=== PATIENT | male | born 1980 | race Caucasian/White ===

== ENCOUNTER 2019-01-27 05:04 | Emergency (ER) | payer BC ==
[2019-01-27] MEDS ORDERED: Sodium Chloride 0.9% 10 ML Syringe FLUSH PRN (05:28)
[2019-01-27] MEDS ORDERED: Famotidine 20 MG/2 ML SDV IVPUSH ONE (05:28)
--- NOTE | 2019-01-27 05:28 | EDM.PDOC ---
ED HPI GENERAL MEDICAL PROBLEM - General Chief Complaint: General Stated Complaint: confusion Time Seen by Provider: 01/27/19 05:25 Source of Information: Reports: Patient, EMS, Family (, mother), Old Records ([facility] chart/EMR). Denies: EMS Notes Reviewed (Record not available at time of dictation) History Limitations: Reports: No Limitations - History of Present Illness INITIAL COMMENTS - FREE TEXT/NARRATIVE: The patient was brought to the emergency room via ambulance with log grader accompaniment for evaluation of a probable grand mal seizure, which occurred while the patient was sleeping at about 4 AM this morning. The seizure was witnessed by his with mostly tonic-clonic activity in the arms bilaterally. Seizures lasted for about 20 seconds with postictal sedation for about 20 minutes with subsequent confusion, which has improved at time of arrival to the emergency room.. He has not had a seizure in the past with no history of stool or urine incontinence. There was some mild drooling and possible foaming of the mouth with no history of aspiration, etc. No history of recent headaches, visual changes, diplopia, or other change in neurological status. The patient denies any chest pain/pressure, heart flutter, dizziness, orthostasis, orthopnea, diaphoresis, paresthesias, recent decreased exercise tolerance, or any other anginal-type symptoms. No recent history of abdominal pain, heartburn, nausea, diarrhea, melena, gross hematochezia, or any food intolerance, including fatty foods, etc.. The patient also denies any recent fever, cough, wheezing, dyspnea, etc.. History of fall or injury with the patient complaining of nonspecific 3/10 posterior neck pain secondary to his seizure with no other meningeal signs. EKG apparently conducted by paramedics, however not available at this time. Normal sinus rhythm by their history. Spot Accu-Chek on the scene of 147 mg percent. O2 applied by the paramedics in route. Onset: Today, Sudden Onset Date: 01/27/19 Onset Time: 04:00 Duration: Improving Location: Reports: Neck (As above). Denies: Head, Face, Chest, Abdomen, Back, Upper Extremity, Left, Upper Extremity, Right, Radiates to Quality: Reports: Ache Severity: Mild Improves with: Reports: None Worsens with: Reports: None Context: Reports: Other (As above). Denies: Trauma Associated Symptoms: Reports: Confusion, Seizure. Denies: Chest Pain, Cough, Diaphoresis, Fever/Chills, Headaches, Loss of Appetite, Malaise, Nausea/Vomiting , Shortness of Breath, Syncope, Weakness Treatments EMPLOYMENT MANAGER: Reports: IV/IO, Oxygen Posterior Neck Pain Score (Numeric/FACES): 3 - Related Data Allergies Allergy/AdvReac Type Severity Reaction Status Date / Time No Known Allergies Allergy Verified 01/27/19 05:14 Home Meds: Home Meds Venlafaxine [Effexor XR] 75 mg PO DAILY 01/27/19 [History] Past Medical History HEENT History: Reports: Impaired Vision, Other (See Below). Denies: Allergic Rhinitis, Cataract, Glaucoma, Hard of Hearing, Macular Degeneration, Otitis Media, Retinal Detachment Other HEENT History: No glasses currently. Previous LASIK. Cardiovascular History: Reports: Heart Murmur, High Cholesterol, Other (See Below). Denies: Afib, Aneurysm, Arrhythmia, Blood Clots/VTE/DVT, CAD, Heart Failure, Hypertension, MT, PVD, Syncope Other Cardiovascular History: Hyperlipidemia currently not under therapy. Benign heart murmur as a teenager. Previously elevated blood pressure with no known hypertension. Respiratory History: Reports: Bronchitis, Recurrent, Intubation, Previous, Other (See Below). Denies: Asthma, COPD, Intubation, Difficult, PE, Pneumonia, Recurrent, Pneumothorax, Sleep Apnea Other Respiratory History: Snoring but no history of sleep apnea with frequent bronchitis during teenage years. Gastrointestinal History: Reports: Chronic Diarrhea, Gastritis, GERD, Other ( See Below). Denies: Bowel Obstruction, Celiac Disease, Cholelithiasis, Chronic Constipation, Fecal Incontinence, GI Bleed, Hepatitis, Inflammatory Bowel Disease, Irritable Bowel Syndrome, Jaundice, Pancreatitis, PUD Other Gastrointestinal History: Esophagitis with possible esophageal ulcer Genitourinary History: Reports: None. Denies: Acute Renal Failure, BPH, Chronic Renal Insuffiency, Renal Calculus, STD, Urinary Incontinence, UTI, Recurrent Musculoskeletal History: Reports: None, Arthritis, Osteoarthritis. Denies: Amputation, Back Pain, Chronic, Fracture, Gout, Neck Pain, Chronic, RA, SLE Neurological History: Reports: None. Denies: Cerebral Aneurysms, Concussion, CVA, Headaches, Chronic, Head Trauma, Migraines, MS, Neuropathy, Peripheral, Parkinson's, Seizure, TIA, Vertigo Psychiatric History: Reports: None. Denies: Abuse, Victim of, ADD, ADHD, Addiction, Anxiety, Depression, Psych Hospitalization(s), PTSD, Suicide Attempt , Suicidal Ideation Endocrine/Metabolic History: Reports: Obesity/BMI 30+. Denies: Diabetes, Type I , Diabetes, Type II, Diabetes Mellitus, Type 3c, Hypothyroidism, IDDM Hematologic History: Reports: None. Denies: Anemia, Blood Transfusion(s), Iron Deficiency Immunologic History: Reports: None. Denies: AIDS, HIV, SLE Oncologic (Cancer) History: Reports: None. Denies: Hodgkin's Lymphoma, Leukemia , Lymphoma, Malignant Melanoma, Renal Dermatologic History: Reports: None. Denies: Eczema, Psoriasis - Infectious Disease History Infectious Disease History: Reports: Chicken Pox. Denies: C-Difficile, Measles , Meningitis, Mononucleosis, Mumps, Pertussis (Whooping Cough), Rheumatic Fever , Rubella, Scarlet Fever, Shingles, TB, VRE - Past Surgical History Head Surgeries/Procedures: Reports: None HEENT Surgical History: Reports: LASIK, Oral Surgery, Other (See Below). Denies : Adenoidectomy, Eye Surgery, Myringotomy w Tube(s), Naso-Sinus Surgery, Tonsillectomy Other HEENT Surgeries/Procedures: Grassflat teeth extraction 4 in about 2004. LASIK in about 2004. Cardiovascular Surgical History: Reports: None. Denies: Varicose Respiratory Surgical History: Reports: None. Denies: Thoracentesis GI Surgical History: Reports: Appendectomy, EGD, Other (See Below). Denies: Cholecystectomy, Colonoscopy, Hernia, Inguinal, Hernia Repair/Other Other GI Surgeries/Procedures: Appendicectomy in 1998. EGD in May 2018. Male Surgical History: Reports: Circumcision, Other (See Below). Denies: Vasectomy Other Male Surgeries/Procedures: Circumcision as an . Endocrine Surgical History: Reports: None. Denies: Thyroid Biopsy Neurological Surgical History: Reports: None. Denies: C-Spine, Discectomy, Laminectomy, Lumbar Spine, Sacral Spine, Spinal Fusion, Thoracic Spine, Vertebroplasty Musculoskeletal Surgical History: Reports: None. Denies: Arthroscopic Procedure , Carpal Tunnel, Ganglion Cyst, Joint Replacement, ORIF, Shoulder Surgery Oncologic Surgical History: Reports: None Dermatological Surgical History: Reports: None - Past Imaging History Past Imaging History: Reports: CAT Scan (CT of the abdomen and pelvis on .), Stress Testing (Negative Cardiolite stress test on 12/04/12 with ejection fraction of 63%.), Ultrasound (Gall Bladder ultrasound on 11/28/12.) Social & Family History - Family History HEENT: Reports: None. Denies: Glaucoma, Macular Degeneration, Retinal Detachment Cardiac: Reports: Arrhythmia, Blood Clots/VTE/DVT, Bypass, CAD, MT, Pacemaker, Other (See Below). Denies: Afib, Aneurysm, Heart Failure, Heart Murmur, Syncope Other Cardiac Family History: Maternal grandfather with coronary artery disease but no MT. Maternal aunt with history of MT in her 50s. Maternal uncle with history of MT and CABG 3 at age 51. Paternal aunt with history of DVT and probable fatal PE in her 50s. Paternal uncle with pacemaker an unknown type of heart surgery. Paternal grandfather with fatal MT at age 47. Father with DVT and PE at age 55. Hypertension in mother in maternal grandmother. Hyperlipidemia in mother. Respiratory: Reports: PE, Sleep Apnea, Other (See Below). Denies: Asthma, COPD , Pneumothorax Other Respiratory Family Hisory: Father with sleep apnea. PEs as above. GI: Reports: Bowel Obstruction, Colon Polyps, Other (See Below). Denies: Celiac Disease, Cholelithiasis, GERD, GI bleed, Inflammatory Bowel Disease, Irritable Bowel Syndrome, PUD Other GI Family History: Maternal uncle with colon polyps with maternal grandfather with colon cancer as below. Maternal grandfather with unknown type of abdominal issues including possible adhesions, obstruction, etc. : Reports: Renal Calculus, Other (See Below). Denies: Renal Disease/ Insufficiency Other Family History: Paternal uncle with urolithiasis. OBGYN: Reports: None. Denies: Endometriosis, Recurrent Spontaneous Musculoskeletal: Reports: Arthritis, RA, Other (See Below). Denies: Gout, SLE Other Musculoskeletal Family History: Rheumatoid arthritis in paternal aunt Neurological: Reports: MS, Other (See Below). Denies: Alzheimers Disease, Cerebral Aneurysms, CVA, Dementia, Migraines, Parkinson's, Seizure, TIA Other Neurological Family History: MS in paternal uncle. Father with fatal ALS at age 57. Psychiatric: Reports: Depression, Eating Disorders, Psych Hospitalization(s), Other (See Below). Denies: Abuse, Victim of, ADD, ADHD, Anxiety, PTSD, Suicide Attempt Other Psychiatric Family History: Maternal uncle with anxiety depression disorder which did require hospitalization. Endocrine/Metabolic: Reports: Diabetes, type II, Hypothyroidism, IDDM, Other ( See Below). Denies: Diabetes, Gestational, Diabetes, Type I, Diabetes Mellitus , Type 3c Other Endocrine/Metabolic Family History: IDDM in maternal grandmother and maternal uncle. Mother with AODM and hypothyroidism. Hematologic: Reports: None. Denies: Anemia, SLE Immunologic: Reports: None. Denies: AIDS, HIV, SLE Dermatologic: Reports: None. Denies: Eczema, Psoriasis Oncologic: Reports: Colon, Other (See Below). Denies: Hodgkin's Lymphoma, Leukemia, Lymphoma, Non-Hodgkin's Lymphoma, Prostate, Skin Other Oncologic Family History: Maternal grandfather with fatal colon cancer at age 86. - Tobacco Use Smoking Status *Q: Former Smoker Tobacco Use Within Last Twelve Months: No Years of Tobacco use: 5 Packs/Tins Daily Comment: Patient used cigarettes and chewing tobacco between ages 19 and 23. Used Tobacco, but Quit: Yes Month/Year Tobacco Last Used: 15 Smoking Cessation Information Provided To Patient: Yes Second Hand Smoke Exposure: No Second Hand Smoke Education Provided: No - Caffeine Use Caffeine Use: Reports: Coffee (Maximum 10 cups per day), Tea (2 cans per week). Denies: Energy Drinks, Soda - Alcohol Use Alcohol Use History: Yes Days Per Week of Alcohol Use: 0 Number of Drinks Per Day: 3 Number of Drinks Per Day Comment: Usually mixed drinks about twice per month. No previous DWIs, problems with alcohol abuse, etc. Total Drinks Per Week: 0 Alcohol Use in Last Twelve Months: Yes - Recreational Drug Use Recreational Drug Use: No Drug Use in Last 12 Months: No Recreational Drug Type: Denies: Amphetamines (Speed), Cocaine, Heroin, Inhalants (Glues, Solvents, Aerosols), Ketamines, Marijuana/Hashish, Methamphetamine, Oxycodone - Sexual History Sexual History: Reports: None, Single Partner - Living Situation & Occupation Living situation: Reports: (2006, however), with Family Occupation: Employed ([employer]) ED ROS GENERAL - Review of Systems Review Of Systems: ROS reveals no pertinent complaints other than HPI. ED EXAM, GENERAL - Physical Exam Exam: See Below Exam Limited By: No Limitations General Appearance: Alert, WD/WN, No Apparent Distress Eye Exam: Bilateral Eye: EOMI, Normal Fundi, Normal Inspection (No nystagmus), PERRL Nose: Normal Inspection, Normal Mucosa, No Blood Throat/Mouth: Normal Inspection, Normal Lips, Normal Teeth, Normal Gums, Normal Oropharynx, Normal Voice, No Airway Compromise, Other (No tongue injury). No: Dysphagia, Perioral Cyanosis Head: Atraumatic, Normocephalic. No: Facial Swelling, Facial Tenderness, Sinus Tenderness Neck: Normal Inspection, Supple, Non-Tender, Full Range of Motion. No: Carotid Bruit, Lymphadenopathy (L), Lymphadenopathy (R), Thyromegaly Respiratory/Chest: No Respiratory Distress, Lungs Clear, Normal Breath Sounds, No Accessory Muscle Use, Chest Non-Tender. No: Pleural Rub, Retractions Cardiovascular: Normal Peripheral Pulses, Regular Rate, Rhythm, No Edema, No Gallop, No JVD, No Murmur, No Rub. No: Gallop/S3, Gallop/S4, Friction Rub Peripheral Pulses: 2+: Radial (L), Radial (R), Dorsalis Pedis (L), Dorsalis Pedis (R) GI/Abdominal: Normal Bowel Sounds, Soft, Non-Tender, No Organomegaly, No Distention, No Abnormal Bruit, No Mass, Pelvis Stable, Other (Obese). No: Guarding (Male) Exam: Deferred Rectal (Males) Exam: Deferred Back Exam: Normal Inspection, Full Range of Motion. No: CVA Tenderness (L), CVA Tenderness (R), Muscle Spasm Extremities: Normal Inspection, Normal Range of Motion, Non-Tender, No Pedal Edema, Normal Capillary Refill. No: Yessi's Sign Neurological: Alert, Oriented, CN II-XII Intact, Normal Cognition, Normal Gait, Normal Reflexes (Negative Babinski's, finger to nose, and pronator rotation tests. No evidence of facial paresis, tongue deviation, orthostasis, etc.. Excellent reverse thought processes.), No Motor/Sensory Deficits Psychiatric: Normal Affect, Normal Mood Skin Exam: Warm, Dry, Intact, Normal Color, No Rash. No: Diaphoretic, Wound/ Incision Lymphatic: No Adenopathy EKG INTERPRETATION EKG Date: 01/27/19 Time: 05:50 Rhythm: NSR Rate (Beats/Min): 78 [employer]: Normal (Neutral) P-Wave: Present QRS: Wide (0.11 seconds) ST-T: Normal (T-wave inversion in leads 3 and V1) QT: Normal WV/PQ Interval: 0.15 seconds with no delta waves noted Comparison: No Change (Last EKG at time of Cardiolite evaluation on 12/04/12) EKG Interpretation Comments: No acute ischemic changes Course - Vital Signs Last Recorded V/S: Last Vital Signs Temp 36.6 C 01/27/19 07:34 Pulse 87 01/27/19 08:26 Resp 20 01/27/19 08:26 BP 123/79 01/27/19 08:26 Pulse Ox 100 01/27/19 08:26 Vital Signs - 24 hr 01/27/19 01/27/19 01/27/19 05:05 05:28 05:45 Temperature [ 36.5 C 36.6 C Oral] Pulse, 90 85 86 Peripheral [ Right Pulse Oximetry] Respiratory 16 16 16 Rate Blood Pressure 130/74 103/53 L 108/76 [Right Upper Arm] O2 Sat by Pulse 92 L 98 98 Oximetry 01/27/19 01/27/19 01/27/19 06:00 06:15 06:30 Temperature [ Oral] Pulse, 82 85 83 Peripheral [ Right Pulse Oximetry] Respiratory 16 16 16 Rate Blood Pressure 119/51 L 108/57 L 116/68 [Right Upper Arm] O2 Sat by Pulse 99 99 100 Oximetry 01/27/19 01/27/19 01/27/19 06:36 07:34 08:26 Temperature [ 36.6 C Oral] Pulse, 80 80 87 Peripheral [ Right Pulse Oximetry] Respiratory 16 24 H 20 Rate Blood Pressure 109/60 126/74 123/79 [Right Upper Arm] O2 Sat by Pulse 100 100 100 Oximetry - Orders/Labs/Meds Orders: Active Orders 24 hr Category Date Time Status Cardiac Monitoring [RC] STAT Care 01/27/19 05:28 Active EKG Documentation Completion [RC] ASDIRECTED Care 01/27/19 05:28 Active NIH Stroke Scale [RC] ASDIRECTED Care 01/27/19 05:28 Active Oxygen Therapy, ED [RC] PRN Care 01/27/19 05:28 Active Peripheral IV Care [RC] . DIRECTED Care 01/27/19 05:28 Active Pulse Oximetry [RC] CONTINUOUS Care 01/27/19 05:28 Active Up With Assistance [RC] ASDIRECTED Care 01/27/19 05:28 Active Vital Signs [RC] PFP Care 01/27/19 05:28 Active Nothing per Oral Now Diet [DIET] Diet 01/27/19 Breakfast Active Chest 1V Frontal [CR] Stat Exams 01/27/19 05:28 Taken Head wo Cont [CT] Stat Exams 01/27/19 05:28 Taken PROLACTIN [REF] Stat Lab 01/27/19 05:40 Received Sodium Chloride 0.9% [Saline Flush] Med 01/27/19 05:28 Active 10 ml FLUSH ASDIRECTED PRN Obtain Past Medical Record [OM.PC] Stat Oth 01/27/19 05:28 Active Peripheral IV Insertion Adult [OM.PC] Stat Oth 01/27/19 05:28 Ordered Resuscitation Status Stat Resus Stat 01/27/19 05:28 Ordered Medication Orders Sodium Chloride (Saline Flush) 10 ml FLUSH ASDIRECTED PRN PRN Reason: Keep Vein Open Last Admin: 01/27/19 05:53 Dose: 10 ml Labs: Laboratory Tests 01/27/19 01/27/19 01/27/19 Range/Units 05:40 05:40 05:40 WBC 7.2 (4.0-10.2) K/uL RBC 5.10 (4.33-5.41) M/uL Hgb 15.6 (13.1-16.8) g/dL Hct 43.6 (39.0-49.0) % MCV 85.5 (84.0-98.0) fL MCH 30.6 (28.2-33.3) pg MCHC 35.8 (31.7-36.0) g/dL RDW 13.1 (11.2-14.1) % Plt Count 199 (150-350) K/uL Neut % (Auto) 67.5 (45.0-80.0) % Lymph % (Auto) 23.9 (10.0-50.0) % Reynolds % (Auto) 6.6 (2.0-14.0) % Eos % (Auto) 1.4 (0.0-5.0) % Baso % (Auto) 0.6 (0.0-2.0) % Neut # (Auto) 4.88 (1.40-7.00) K/uL Lymph # (Auto) 1.73 (0.50-3.50) K/uL Reynolds # (Auto) 0.48 (0.00-1.00) K/uL Eos # (Auto) 0.10 (0.00-0.50) K/uL Baso # (Auto) 0.04 (0.00-0.20) K/uL PT 10.2 (9.5-12.0) SEC INR 0.9 APTT 24.3 (21.0-31.3) SEC D-Dimer, Quantitative 950 H (0-400) ng/mL Sodium (136-145) mmol/L Potassium (3.5-5.1) mmol/L Chloride (98-107) mmol/L Carbon Dioxide (21.0-32.0) mmol/L BUN (7-18) mg/dL Creatinine (0.51-1.17) mg/dL Est Cr Clr Drug Dosing mL/min Estimated GFR (MDRD) mL/min Glucose (74-106) mg/dL Lactic Acid (0.4-2.0) mmol/L Uric Acid (2.6-7.2) mg/dL Calcium (8.5-10.1) mg/dL Magnesium (1.8-2.4) mg/dL Total Bilirubin (0.2-1.0) mg/dL AST (15-37) U/L ALT (12-78) U/L Alkaline Phosphatase (46-116) IU/L Creatine Kinase (26-308) U/L Creatine Kinase Index (0.0-2.5) % CK-MB (CK-2) (0.00-3.60) ng/mL Troponin I (0.000-0.056) ng/mL NT-Pro-B Natriuret Pep (0-125) pg/mL Total Protein (6.4-8.2) g/dL Albumin (3.4-5.0) g/dL TSH, Ultra Sensitive (0.358-3.740) mIU/mL 01/27/19 01/27/19 Range/Units 05:40 05:40 WBC (4.0-10.2) K/uL RBC (4.33-5.41) M/uL Hgb (13.1-16.8) g/dL Hct (39.0-49.0) % MCV (84.0-98.0) fL MCH (28.2-33.3) pg MCHC (31.7-36.0) g/dL RDW (11.2-14.1) % Plt Count (150-350) K/uL Neut % (Auto) (45.0-80.0) % Lymph % (Auto) (10.0-50.0) % Reynolds % (Auto) (2.0-14.0) % Eos % (Auto) (0.0-5.0) % Baso % (Auto) (0.0-2.0) % Neut # (Auto) (1.40-7.00) K/uL Lymph # (Auto) (0.50-3.50) K/uL Reynolds # (Auto) (0.00-1.00) K/uL Eos # (Auto) (0.00-0.50) K/uL Baso # (Auto) (0.00-0.20) K/uL PT (9.5-12.0) SEC INR APTT (21.0-31.3) SEC D-Dimer, Quantitative (0-400) ng/mL Sodium 138 (136-145) mmol/L Potassium 3.3 L (3.5-5.1) mmol/L Chloride 100 (98-107) mmol/L Carbon Dioxide 26.6 (21.0-32.0) mmol/L BUN 18 (7-18) mg/dL Creatinine 1.14 (0.51-1.17) mg/dL Est Cr Clr Drug Dosing 97.38 mL/min Estimated GFR (MDRD) > 60 mL/min Glucose 150 H (74-106) mg/dL Lactic Acid 4.7 H (0.4-2.0) mmol/L Uric Acid 11.3 H (2.6-7.2) mg/dL Calcium 8.8 (8.5-10.1) mg/dL Magnesium 1.8 (1.8-2.4) mg/dL Total Bilirubin 0.6 (0.2-1.0) mg/dL AST 35 (15-37) U/L ALT 46 (12-78) U/L Alkaline Phosphatase 83 (46-116) IU/L Creatine Kinase 214 (26-308) U/L Creatine Kinase Index 0.8 (0.0-2.5) % CK-MB (CK-2) 1.70 (0.00-3.60) ng/mL Troponin I 0.000 (0.000-0.056) ng/mL NT-Pro-B Natriuret Pep 6 (0-125) pg/mL Total Protein 7.4 (6.4-8.2) g/dL Albumin 4.0 (3.4-5.0) g/dL TSH, Ultra Sensitive 3.351 (0.358-3.740) mIU/mL Meds: Medications Generic Name Dose Route Start Last Admin Trade Name Polly PRN Reason Stop Dose Admin Sodium Chloride 10 ml 01/27/19 05:28 01/27/19 05:53 Saline Flush FLUSH 10 ml ASDIRECTED PRN Administration Keep Vein Open Discontinued Medications Generic Name Dose Route Start Last Admin Trade Name Freq PRN Reason Stop Dose Admin Famotidine 40 mg 01/27/19 05:28 01/27/19 05:53 Pepcid IVPUSH 01/27/19 05:29 40 mg ONETIME ONE Administration Lactated Ringer's 1,000 mls @ 999 mls/hr 01/27/19 06:39 01/27/19 07:39 Ringers, Lactated IV 01/27/19 07:39 999 mls/hr .BOLUS ONE Administration Iopamidol 100 ml 01/27/19 06:45 Isovue-370 (76%) IVPUSH 01/27/19 06:46 ONETIME ONE Iopamidol Confirm 01/27/19 07:21 Isovue-370 (76%) Administered 01/27/19 07:22 Dose 50 ml .ROUTE .STK-MED ONE Iopamidol Confirm 01/27/19 07:23 Isovue-370 (76%) Administered 01/27/19 07:24 Dose 50 ml .ROUTE .STK-MED ONE Levetiracetam 500 mg 01/27/19 07:17 01/27/19 07:45 Keppra PO 01/27/19 07:18 500 mg ONETIME ONE Administration - Radiology Interpretation Free Text/Narrative:: Corporate Communications Manager shows normal sinus rhythm with heart rate in the 70s to 80s with no ectopy or arrhythmia. Chest x-ray, portable, shows evidence of borderline pulmonary obstructive disease with no pneumothorax, pulmonary infiltrates, cardiomegaly, CHF, etc. Note somewhat poor inspiratory film. Telephone consultation at 06:55 hours with the radiology department at [facility]. Preliminary verbal report of CT of the head without contrast shows evidence of left frontal cerebral edema consistent with CVA with no cerebral hemorrhage, mass, etc. CT Results Date: 01/27/19 CT Results Time: 06:55 Departure - Departure Time of Disposition: :25 Disposition: DC/Tfer to [facility] 02 Condition: Good Clinical Impression: Grand mal seizure, D-dimer, elevated, Hypokalemia, Peptic reflux disease, Cerebral edema, Elevated lactic acid level, Hyperuricemia Hyperlipidemia Qualifiers: Hyperlipidemia type: mixed hyperlipidemia Qualified Code(s): E78.2 - Mixed hyperlipidemia Osteoarthritis Qualifiers: Osteoarthritis location: multiple joints Osteoarthritis type: primary Qualified Code(s): M15.0 - Primary generalized (osteo)arthritis - Discharge Information *PRESCRIPTION DRUG MONITORING PROGRAM REVIEWED*: Not Applicable *COPY OF PRESCRIPTION DRUG MONITORING REPORT IN PATIENT NATALIIA: Not Applicable Referrals: Sheets-Jovita Oswald MD [Primary Care Provider] - Forms: ED Department Discharge, Interfacility Transfer EMTALA Care Plan Goals: Ambulance transfer as below. - Problem List & Annotations (1) Cerebral edema SNOMED Code(s): 4851927 Code(s): G93.6 - CEREBRAL EDEMA Status: Acute Priority: High Current Visit: Yes Onset Date: 01/27/19 Annotation/Comment:: Note CT scan of the head results as above. Telephone consultation with [facility] at 07:00 hours with subsequent telephone consultation at 07:[address] Gil, neurologist, who does recommend MRI of the brain and 500 mg of oral Keppra. No further aspirin or anticoagulants per his recommendations. Subsequent telephone consultation at 07:[address] Chen, emergency room physician, who does accept the patient for further treatment and evaluation , with no further treatment recommendations given. Ambulance transfer with log grader accompaniment. Vital signs and clinical exam were stable at time of transfer. (2) Grand mal seizure SNOMED Code(s): 18405574 Code(s): G40.409 - OTH GENERALIZED EPILEPSY, NOT INTRACTABLE, W/O STAT EPI Status: Acute Priority: High Current Visit: Yes Onset Date: 01/27/19 Annotation/Comment:: No neurological deficits or evidence of CVA. NIH stroke scale of 0. Note witnessed seizure as above. Neurological consultation as above. MRI of the brain LISSETH by accepting facility with further neurological consultation at that time. (3) Elevated lactic acid level SNOMED Code(s): 5718181 Code(s): R79.89 - OTHER SPECIFIED ABNORMAL FINDINGS OF BLOOD CHEMISTRY Status: Acute Priority: High Current Visit: Yes Onset Date: 01/27/19 Annotation/Comment:: Elevated lactic acid level likely secondary to his grand mal seizure. IV lactated Ringer's initiated in the emergency room as above. Consider repeat lactic acid level in 3 hours. Note no fever, leukocytosis, etc. (4) D-dimer, elevated SNOMED Code(s): 789404145 Code(s): R79.89 - OTHER SPECIFIED ABNORMAL FINDINGS OF BLOOD CHEMISTRY Status: Acute Priority: High Current Visit: Yes Onset Date: 01/27/19 Annotation/Comment:: Note CTA of the chest cannot be conducted in this facility as ordered secondary to equipment failure. Recommend CTA of the chest by accepting. Strong family history of DVT and PE, however no clinical evidence of DVT today. Consider Venous Doppler studies of the lower extremities depending on his clinical course. (5) Hyperlipidemia SNOMED Code(s): 60790778 Code(s): E78.5 - HYPERLIPIDEMIA, UNSPECIFIED Status: Chronic Priority: Medium Current Visit: Yes Annotation/Comment:: Note history of fatty liver. Weight loss in moderation advisable. Consider starting patient with a statin with additional heart healthy and uric acid diet secondary to newly diagnosed hyperuricemia with no history of previous gout, etc. Qualifiers: Hyperlipidemia type: mixed hyperlipidemia Qualified Code(s): E78.2 - Mixed hyperlipidemia (6) Hypokalemia SNOMED Code(s): 21787056 Code(s): E87.6 - HYPOKALEMIA Status: Acute Priority: Medium Current Visit: Yes Onset Date: 01/27/19 Annotation/Comment:: Lactated Ringer's IV bolus given in the emergency room. (7) Osteoarthritis SNOMED Code(s): 260119179 Code(s): M19.90 - UNSPECIFIED OSTEOARTHRITIS, UNSPECIFIED SITE Status: Chronic Priority: Medium Current Visit: Yes Annotation/Comment:: Mild neck pain currently likely secondary to today's seizure and/or cerebral edema as above. Note negative meningeal signs.. No history of recent injury. Otherwise stable arthritis. Note newly diagnosed hyperuricemia as above. Qualifiers: Osteoarthritis location: multiple joints Osteoarthritis type: primary Qualified Code(s): M15.0 - Primary generalized (osteo)arthritis (8) Peptic reflux disease SNOMED Code(s): 479320730 Code(s): K21.9 - GASTRO-ESOPHAGEAL REFLUX DISEASE WITHOUT ESOPHAGITIS Status: Chronic Priority: Medium Current Visit: Yes Annotation/Comment:: High-dose IV Pepcid given in the emergency room. Otherwise stable by history. (9) Hyperuricemia SNOMED Code(s): 08824984 Code(s): E79.0 - HYPERURICEMIA W/O SIGNS OF INFLAM ARTHRIT AND TOPHACEOUS DIS Status: Acute Priority: Medium Current Visit: Yes Onset Date: Annotation/Comment:: As above - Problem List Review Problem List Initiated/Reviewed/Updated: Yes - My Orders Last 24 Hours: My Active Orders 01/27/19 05:28 Cardiac Monitoring [RC] STAT EKG Documentation Completion [RC] ASDIRECTED NIH Stroke Scale [RC] ASDIRECTED Oxygen Therapy, ED [RC] PRN Peripheral IV Care [RC] . DIRECTED Pulse Oximetry [RC] CONTINUOUS Up With Assistance [RC] ASDIRECTED Vital Signs [RC] PFP Chest 1V Frontal [CR] Stat Head wo Cont [CT] Stat Sodium Chloride 0.9% [Saline Flush] 10 ml FLUSH ASDIRECTED PRN Obtain Past Medical Record [OM.PC] Stat Peripheral IV Insertion Adult [OM.PC] Stat Resuscitation Status Stat 01/27/19 05:40 PROLACTIN [REF] Stat 01/27/19 Breakfast Nothing per Oral Now Diet [DIET] - Assessment/Plan Last 24 Hours: My Active Orders 01/27/19 05:28 Cardiac Monitoring [RC] STAT EKG Documentation Completion [RC] ASDIRECTED NIH Stroke Scale [RC] ASDIRECTED Oxygen Therapy, ED [RC] PRN Peripheral IV Care [RC] . DIRECTED Pulse Oximetry [RC] CONTINUOUS Up With Assistance [RC] ASDIRECTED Vital Signs [RC] PFP Chest 1V Frontal [CR] Stat Head wo Cont [CT] Stat Sodium Chloride 0.9% [Saline Flush] 10 ml FLUSH ASDIRECTED PRN Obtain Past Medical Record [OM.PC] Stat Peripheral IV Insertion Adult [OM.PC] Stat Resuscitation Status Stat 01/27/19 05:40 PROLACTIN [REF] Stat 01/27/19 Breakfast Nothing per Oral Now Diet [DIET] Assessment:: As above Plan: As above. Extensive precautions were given to the patient and his family, who are in agreement with the treatment plan. Ambulance transfer with log grader accompaniment to [place] as above.
[2019-01-27 06:21] LABS: CHLORIDE,CL 100 mmol/L (98-107); SODIUM,NA 138 mmol/L (136-145)
[2019-01-27] MEDS ORDERED: Lactated Ringers 1,000 ML IV ONE (06:39)
[2019-01-27] MEDS ORDERED: Iopamidol 755 Mg/ML 100 ML Bottle IVPUSH ONE (06:45)
[2019-01-27] MEDS ORDERED: levETIRAcetam 500 MG Tab PO ONE (07:17)
[2019-01-27] MEDS ORDERED: Iopamidol 755 MG/ML 50 ML Bottle ONE ×2 (07:21→07:23)
== END 2019-01-27 08:25 ==
LOC: LL.ED 05:04
DX: G40.409 Other generalized epilepsy and epileptic syndromes, not intractable, without status epilepticus (principal); G93.6 Cerebral edema; K21.9 Gastro-esophageal reflux disease without esophagitis; E87.6 Hypokalemia; E79.0 Hyperuricemia without signs of inflammatory arthritis and tophaceous disease; E78.2 Mixed hyperlipidemia; M15.0 Primary generalized (osteo)arthritis; R79.89 Other specified abnormal findings of blood chemistry; Z79.899 Other long term (current) drug therapy; Z87.891 Personal history of nicotine dependence
CPT/HCPCS: 36000; 36415; 70450; 71045; 80053; 82550; 82553; 83605; 83735; 83880; 84146; 84443; 84484; 84550; 85025; 85379; 85610; 85730; 93005; 96360; 96374; 99285; A9270; J3490; J7120

== ENCOUNTER 2019-12-23 09:53 | Day surgery (SDC) | payer BC ==
[~2019-12-23 09:53] MED LIST: Lactated Ringers 1,000 ML IV SCH; Midazolam 1 MG/ML 2 ML SDV ONE; Propofol 200 MG/20 ML SDV ONE; Sodium Chloride 0.9% 10 ML Syringe FLUSH PRN; fentaNYL 250 MCG/5 ML SDV ONE
[2019-12-23] MEDS: Lactated Ringers 1,000 ML IV SCH (10:47)
[2019-12-23] MEDS ORDERED: Neostigmine Methylsulfate 10 MG/10 ML MDV ONE (11:10)
[2019-12-23] MEDS ORDERED: Succinylcholine 200 MG/10 ML MDV ONE (11:10)
[2019-12-23] MEDS: EPINEPHrine 1 MG/1 ML Amp ONE (11:10)
[2019-12-23] MEDS ORDERED: Midazolam 1 MG/ML 2 ML SDV ONE (11:10)
[2019-12-23] MEDS ORDERED: Dexamethasone 10 MG/ML SDV ONE (11:10)
[2019-12-23] MEDS ORDERED: Glycopyrrolate 0.2 MG/ML SDV ONE ×2 (11:10)
[2019-12-23] MEDS ORDERED: Ketorolac 30 MG/ML SDV ONE (11:10)
[2019-12-23] MEDS: Gentamicin 40 MG/ML 2 ML Vial ONE (11:10)
[2019-12-23] MEDS ORDERED: fentaNYL 250 MCG/5 ML SDV ONE (11:10)
[2019-12-23] MEDS ORDERED: Propofol 200 MG/20 ML SDV ONE (11:10)
[2019-12-23] MEDS ORDERED: Rocuronium 100 MG/10 ML MDV ONE (11:10)
[2019-12-23] MEDS ORDERED: Scopolamine 1.5 MG Transdermal Patch ONE (11:41)
[2019-12-23] MEDS: Bupivacaine 0.25%/EPINEPHrine 1:200,000 30 ML SDV INJECT ONE (11:55)
--- NOTE | 2019-12-23 12:10 | PCM.OPNOTE ---
- General Post-Op/Procedure Note Date of Surgery/Procedure: 12/23/19 Operative Procedure(s): left knee arthroscopy. partial medial menisectomy Pre Op Diagnosis: partial medial meniscus tear Post-Op Diagnosis: Same Anesthesia Technique: General ET Tube Primary Surgeon: Richie Valentine Complications: None Condition: Good
--- NOTE | 2019-12-23 14:23 | OR ---
Date of Procedure: 12/23/2019 PREOPERATIVE DIAGNOSIS: Left knee partial medial meniscus tear. POSTOPERATIVE DIAGNOSIS: Left knee partial medial meniscus tear. PROCEDURE: Left knee partial medial meniscectomy. ANESTHESIA: General endotracheal intubation. FLUIDS: Lactated Ringer's solution. ESTIMATED BLOOD LOSS: 5 mL. COMPLICATIONS: None. SPECIMENS: None. DISCHARGE DISPOSITION: Stable to PACU. HISTORY AND INDICATIONS FOR THE PROCEDURE: The patient was seen preoperatively in the clinic. He failed nonoperative treatment. Preoperative imaging confirmed the above-mentioned diagnosis. Risks and goals of the procedure were explained to the patient. Informed consent was obtained. DETAILS OF THE PROCEDURE: The patient was seen preoperatively by myself and the anesthesia staff in the preoperative holding area where the operative site was marked. He was brought to the operative suite by anesthesia staff, where general anesthesia was administered. The right extremity was placed into a stirrup. The left lower extremity had a well-padded tourniquet placed on the thigh. Towels were placed under the left thigh to flex hip at approximately 15 degrees to avoid any femoral nerve injury. The left lower extremity was then prepped and draped in a sterile manner. Time-out was called identifying the correct patient, the correct procedure, the correct site, and the antibiotics had been given at appropriate period of time. The left lower extremity was then exsanguinated and tourniquet was raised to 250 mmHg and taken down after closure. The lateral portal was first made. Trocar was inserted and then the scope, and then, the knee was insufflated with sterile saline with gentamycin and epinephrine. We then entered patellofemoral compartment with the knee in extension. This showed minimal degenerative chondromalacia, although there had been shown evidence of fissuring on the MRI, which was not seen arthroscopically. Both of the gutters were cleared. They had no plica. I then examined the lateral compartment, lateral meniscus, did not have tears. A minimal chondromalacia was present. I then made my medial portal and inserted a trocar and then inserted the shaver. I removed a part of patellar fat pad and then found that there was an anteromedial tear which was radial comprising approximately 25% of the width of the meniscus. I then used the shaver to debride this and stabilize this with an ablation unit. I inspected the posterior meniscus which did not show any sign of tear. Having accomplished our goal, we then removed our instruments and then applied local anesthetic and then closed the incisions with 3-0 nylon in horizontal mattress manner followed by Betadine-soaked Adaptic, sponges, and Kavon wrap. The patient was then allowed to awaken from general anesthesia and taken to the PACU in stable condition. ISA Valentine DO, DO /[id number]
== END 2019-12-23 13:50 | disposition home or self-care (01) ==
LOC: LL.SDS 09:53
PROVIDERS: ATTEND Orthopaedic Surgery
DX: S83.242A Other tear of medial meniscus, current injury, left knee, initial encounter (principal); M94.262 Chondromalacia, left knee; Z79.899 Other long term (current) drug therapy; X58.XXXA Exposure to other specified factors, initial encounter
CPT/HCPCS: 29881; J0171; J0330; J1100; J1580; J1885; J2250; J2704; J2710; J3010; J3490; J7120

== ENCOUNTER 2021-01-01 19:29 | Emergency (ER) | payer BC ==
--- NOTE | 2021-01-01 19:59 | EDM.PDOC ---
ED HPI GENERAL MEDICAL PROBLEM - General Chief Complaint: Upper Extremity Injury/Pain Stated Complaint: left elbow injury Time Seen by Provider: 01/01/21 19:45 Source of Information: Reports: Patient History Limitations: Reports: No Limitations - History of Present Illness INITIAL COMMENTS - FREE TEXT/NARRATIVE: Patient comes emergency department today with complaints of left elbow pain. This patient on Saturday afternoon was walking in the water on the [place] in [place] when he slipped and fell landing striking his left elbow on the rocks in the water. He sustained a small laceration to the posterior elbow at that time. He washed it out with stream water at that time. He did not apply any anti- infectives such as hydrogen peroxide until the next morning. Over the past 24 hours he has had quite a bit of increased pain swelling warmth to the area surrounding the elbow. He does complain of some paresthesias down the lateral aspect of his forearm to his fourth and fifth finger. He has quite a bit more pain with flexion of the elbow than extension of the elbow. But he still has discomfort either way Left Elbow Pain Score (Numeric/FACES): 0 - Related Data Allergies Allergy/AdvReac Type Severity Reaction Status Date / Time sulfamethoxazole Allergy Rash Verified 01/01/21 20:03 [From Bactrim] trimethoprim [From Bactrim] Allergy Rash Verified 01/01/21 20:03 Home Meds: Home Meds Venlafaxine [Effexor XR] 75 mg PO DAILY 01/27/19 [History] Acetaminophen 1,000 mg PO BID 01/01/21 [History] Ciprofloxacin HCl [Cipro] 500 mg PO BID #20 tablet 01/01/21 [Rx] Hydrocodone/Acetaminophen [HYDROcodone-Acetaminophen 5-325 MG] 1 each PO Q6HR PRN #8 tablet 01/01/21 [Rx] Ibuprofen 800 mg PO BID 01/01/21 [History] cephALEXin [Cephalexin] 500 mg PO QID #40 capsule 01/01/21 [Rx] Past Medical History - Past Health History Medical/Surgical History: Denies Medical/Surgical History HEENT History: Reports: Impaired Vision, Other (See Below) Other HEENT History: No glasses currently. Previous LASIK. Cardiovascular History: Reports: Heart Murmur, High Cholesterol, Other (See Below) Other Cardiovascular History: Hyperlipidemia currently not under therapy. Benign heart murmur as a teenager. Previously elevated blood pressure with no known hypertension. Respiratory History: Reports: Bronchitis, Recurrent, Intubation, Previous, Other (See Below) Other Respiratory History: Snoring but no history of sleep apnea with frequent bronchitis during teenage years. Gastrointestinal History: Reports: Chronic Diarrhea, Gastritis, GERD, Other (See Below) Other Gastrointestinal History: Esophagitis with possible esophageal ulcer Genitourinary History: Reports: None Musculoskeletal History: Reports: None, Arthritis, Osteoarthritis Neurological History: Reports: None Psychiatric History: Reports: None Endocrine/Metabolic History: Reports: Obesity/BMI 30+ Hematologic History: Reports: None Immunologic History: Reports: None Oncologic (Cancer) History: Reports: Brain, Other (See Below) Other Oncologic History: Benign brain tumor removed approx 1 year ago. Dermatologic History: Reports: None - Infectious Disease History Infectious Disease History: Reports: Chicken Pox - Past Surgical History Head Surgeries/Procedures: Reports: None HEENT Surgical History: Reports: LASIK, Oral Surgery, Other (See Below) Other HEENT Surgeries/Procedures: [place] teeth extraction 4 in about 2004. LASIK in about 2004. Oral surgery for tooth currently. Cardiovascular Surgical History: Reports: None Respiratory Surgical History: Reports: None GI Surgical History: Reports: Appendectomy Other GI Surgeries/Procedures: Appendicectomy in 1998. EGD in May 2018. Male Surgical History: Reports: Circumcision, Other (See Below) Other Male Surgeries/Procedures: Circumcision as an infant. Endocrine Surgical History: Reports: None Neurological Surgical History: Reports: None Musculoskeletal Surgical History: Reports: None Oncologic Surgical History: Reports: None Dermatological Surgical History: Reports: None - Past Imaging History Past Imaging History: Reports: CAT Scan (CT of the abdomen and pelvis on .), Stress Testing (Negative Cardiolite stress test on 12/04/12 with ejection fraction of 63%.), Ultrasound (Gall Bladder ultrasound on 11/28/12.) Social & Family History - Family History HEENT: Reports: None Cardiac: Reports: Arrhythmia, Blood Clots/VTE/DVT, Bypass, CAD, MA, Pacemaker, Other (See Below) Other Cardiac Family History: Maternal grandfather with coronary artery disease but no MA. Maternal aunt with history of MA in her 50s. Maternal uncle with history of MA and CABG 3 at age 51. Paternal aunt with history of DVT and probable fatal PE in her 50s. Paternal uncle with pacemaker an unknown type of heart surgery. Paternal grandfather with fatal MA at age 47. Father with DVT and PE at age 55. Hypertension in mother in maternal grandmother. Hyperlipidemia in mother. Respiratory: Reports: PE, Sleep Apnea, Other (See Below) Other Respiratory Family Hisory: Father with sleep apnea. PEs as above. GI: Reports: Bowel Obstruction, Colon Polyps, Other (See Below) Other GI Family History: Maternal uncle with colon polyps with maternal grandfather with colon cancer as below. Maternal grandfather with unknown type of abdominal issues including possible adhesions, obstruction, etc. : Reports: Renal Calculus, Other (See Below) Other Family History: Paternal uncle with urolithiasis. OBGYN: Reports: None Musculoskeletal: Reports: Arthritis, RA, Other (See Below) Other Musculoskeletal Family History: Rheumatoid arthritis in paternal aunt Neurological: Reports: MS, Other (See Below) Other Neurological Family History: MS in paternal uncle. Father with fatal ALS at age 57. Psychiatric: Reports: Depression, Eating Disorders, Psych Hospitalization(s), Other (See Below) Other Psychiatric Family History: Maternal uncle with anxiety depression disorder which did require hospitalization. Endocrine/Metabolic: Reports: Diabetes, type II, Hypothyroidism, IDDM, Other (See Below) Other Endocrine/Metabolic Family History: IDDM in maternal grandmother and maternal uncle. Mother with AODM and hypothyroidism. Hematologic: Reports: None Immunologic: Reports: None Dermatologic: Reports: None Oncologic: Reports: Colon, Other (See Below) Other Oncologic Family History: Maternal grandfather with fatal colon cancer at age 86. - Caffeine Use Caffeine Use: Reports: Coffee (Maximum 10 cups per day), Tea (2 cans per week). Denies: Energy Drinks, Soda - Sexual History Sexual History: Reports: None, Single Partner - Living Situation & Occupation Living situation: Reports: (2006, however), with Family Occupation: Employed ([employer]) Review of Systems - Review of Systems Review Of Systems: Comprehensive ROS is negative, except as noted in HPI. ED EXAM, GENERAL - Physical Exam Exam: See Below Exam Limited By: No Limitations General Appearance: Alert, WD/WN, No Apparent Distress Respiratory/Chest: No Respiratory Distress, No Accessory Muscle Use Cardiovascular: Normal Peripheral Pulses, Regular Rate, Rhythm Peripheral Pulses: 2+: Brachial (L), Brachial (R), Radial (L), Radial (R) Extremities: Limited Range of Motion (Of the left elbow. CMS intact to the fingers. There appears to be no effusion of the joint at this time. ). No: N ormal Inspection (On the tip of the left elbow posteriorly there is a well scabbed over laceration approximately 1 cm in length. There is some generalized erythema and swelling proximally and distally primarily on the posterior aspect of the arm about mcfp down the forearm and about a quarter of the way up humeru) Neurological: Alert, Oriented, No Motor/Sensory Deficits Psychiatric: Normal Affect, Normal Mood Skin Exam: Warm, Dry, Intact Course - Vital Signs Last Recorded V/S: Last Vital Signs Temp 98.5 F 01/01/21 19:42 Pulse 88 01/01/21 19:42 Resp 18 01/01/21 19:42 BP 138/85 01/01/21 19:42 Pulse Ox 100 01/01/21 19:42 - Orders/Labs/Meds Orders: Active Orders 24 hr Category Date Time Status Vaccines to be Administered [RC] PER UNIT ROUTINE Care 01/01/21 19:54 Ordered Elbow Min 3V Lt [CR] Stat Exams 01/01/21 19:45 Ordered C-REACTIVE PROTEIN [CHEM] Stat Lab 01/01/21 19:45 Ordered COMPREHENSIVE METABOLIC PN,CMP [CHEM] Stat Lab 01/01/21 19:45 Ordered LACTIC ACID [CHEM] Stat Lab 01/01/21 19:45 Ordered Labs: Laboratory Tests 01/01/21 Range/Units 19:57 WBC 9.0 (4.0-10.2) K/uL RBC 4.66 (4.33-5.41) M/uL Hgb 13.4 (13.1-16.8) g/dL Hct 39.6 (39.0-49.0) % MCV 85.0 (84.0-98.0) fL MCH 28.8 (28.2-33.3) pg MCHC 33.8 (31.7-36.0) g/dL RDW 13.2 (11.2-14.1) % Plt Count 235 (150-350) K/uL Neut % (Auto) 59.5 (45.0-80.0) % Lymph % (Auto) 27.0 (10.0-50.0) % [place] % (Auto) 10.8 (2.0-14.0) % Eos % (Auto) 2.1 (0.0-5.0) % Baso % (Auto) 0.6 (0.0-2.0) % Neut # (Auto) 5.32 (1.40-7.00) K/uL Lymph # (Auto) 2.42 (0.50-3.50) K/uL [place] # (Auto) 0.97 (0.00-1.00) K/uL Eos # (Auto) 0.19 (0.00-0.50) K/uL Baso # (Auto) 0.05 (0.00-0.20) K/uL Meds: Medications Discontinued Medications Generic Name Dose Route Start Last Admin Trade Name Freq PRN Reason Stop Dose Admin Hydrocodone Bitart/Acetaminophen 2 tab 01/01/21 19:53 01/01/21 20:00 Acetaminophen/Hydrocodone 325-5 Mg Tab PO 01/01/21 19:54 2 tab ONETIME ONE Administration Cephalexin 500 mg 01/01/21 19:58 01/01/21 20:09 Cephalexin 250 Mg Cap PO 01/01/21 19:59 500 mg ONETIME ONE Administration Cephalexin 500 mg 01/01/21 20:04 01/01/21 20:09 Cephalexin 250 Mg Cap PO 01/01/21 20:05 500 mg ONETIME ONE Administration Ciprofloxacin 500 mg 01/01/21 19:58 01/01/21 20:08 Ciprofloxacin 500 Mg Tab PO 01/01/21 19:59 500 mg ONETIME ONE Administration Diphtheria/Tetanus/Acell Pertussis 0.5 ml 01/01/21 19:53 01/01/21 20:00 Diphtheria,Pertussis(Acell),Tetanus Vaccine 0.5 Ml Syringe IM 01/01/21 19:54 0.5 ml .ONCE ONE Administration - Radiology Interpretation Free Text/Narrative:: X-ray of the left elbow 3 views initially reviewed extemporaneously by myself. There is no overt bony deformity subluxation dislocation. There is no sail sign. Radiological review to follow. - Re-Assessments/Exams Free Text/Narrative Re-Assessment/Exam: 01/01/21 19:57 This could be 1 of 2 things. Could be acute traumatic bursitis which would just be symptomatic management. Although with the open area of the skin and the nature of where it happened in the water I am more concerned of cellulitis. Is unlikely for it to be septic bursitis at this time. Labs were drawn. The patient was given Keflex as well as Cipro in the emergency department. As the laceration is scabbed over without drainage or sign of abscess we will leave alone at this time. Too far out for repair and is clearly infected. 01/01/21 20:14 tetanus updated. Sling I will contact him with any concerns of the labs. He MUST follow up to ensure improvement of the elbow. Discharge instructions as below were explained to the patient he was comfortable with this plan and his questions answered. 01/01/21 20:16 Departure - Departure Time of Disposition: 20:16 Disposition: Home, Self-Care 01 Clinical Impression: Infected laceration, Cellulitis of left elbow - Discharge Information Prescriptions: cephALEXin [Cephalexin] 500 mg PO QID #40 capsule Ciprofloxacin HCl [Cipro] 500 mg PO BID #20 tablet Hydrocodone/Acetaminophen [HYDROcodone-Acetaminophen 5-325 MG] 1 each PO Q6HR PRN #8 tablet PRN Reason: Pain Instructions: How To Use a Sling, [id number], Cellulitis, Adult, [id number], Nonsutured Laceration Care, Antibiotic Medicine, Adult, [id number] Referrals: Trixie Moran [employer]LL[employer] ME[employer] SEPARATOR OPERATOR [Primary Care Provider] - Forms: ED Department Discharge Additional Instructions: Tylenol and or Ibuprofen as needed for pain. Cephalexin 1 capsule 4 times a day for 10 days. First dose given in the ED and RX sent to the pharmacy. Cipro 1 capsule 2 times a day for 10 days. First dose given in the ED and RX sent to the pharmacy. When at the pharmacy get some pro-biotics as well to help prevent anti-biotic acquired diarrhea as well. Ask the pharmacist. Ice to the elbow. Sling at all times. Okay to take off when bathing etc but decrease the usage of the elbow at this time. If pain not controlled with above. [place] 1 tablet every 6 hrs with food as needed for pain. Caution sedation. Do not take with Tylenol as this has Tylenol in it as well. Rx sent to the pharmacy. 2 sent home from the ED for tonight. Return to the ED if new or worsening symptoms. Follow up with PCP in 7-10 days for recheck sooner if not improving or worse. Sepsis Event Note (ED) - Evaluation Sepsis Screening Result: No Definite Risk - Focused Exam Vital Signs: Vital Signs Temp Pulse Resp BP Pulse Ox 01/01/21 19:42 98.5 F 88 18 138/85 100 - My Orders Last 24 Hours: My Active Orders 01/01/21 19:45 Elbow Min 3V Lt [CR] Stat C-REACTIVE PROTEIN [CHEM] Stat COMPREHENSIVE METABOLIC PN,CMP [CHEM] Stat LACTIC ACID [CHEM] Stat 01/01/21 19:54 Vaccines to be Administered [RC] PER UNIT ROUTINE - Assessment/Plan Last 24 Hours: My Active Orders 01/01/21 19:45 Elbow Min 3V Lt [CR] Stat C-REACTIVE PROTEIN [CHEM] Stat COMPREHENSIVE METABOLIC PN,CMP [CHEM] Stat LACTIC ACID [CHEM] Stat 01/01/21 19:54 Vaccines to be Administered [RC] PER UNIT ROUTINE
[2021-01-01] MEDS: Diphtheria,Pertussis(Acell),Tetanus Vaccine 0.5 ML Syringe IM ONE (20:00)
[2021-01-01] MEDS: Acetaminophen/HYDROcodone 325-5 MG Tab PO ONE (20:00)
[2021-01-01] MEDS: Ciprofloxacin 500 MG Tab PO ONE (20:08)
[2021-01-01] MEDS: Cephalexin 250 MG Cap PO ONE ×2 (20:09)
[2021-01-01 20:21] LABS: CHLORIDE,CL 104 mmol/L (98-107); SODIUM,NA 143 mmol/L (136-145)
== END 2021-01-01 20:18 | disposition home or self-care (01) ==
LOC: LL.ED 19:29
DX: S51.012A Laceration without foreign body of left elbow, initial encounter (principal); L03.114 Cellulitis of left upper limb; R79.82 Elevated C-reactive protein (CRP); E66.9 Obesity, unspecified; Z23 Encounter for immunization; Z88.2 Allergy status to sulfonamides; Z79.899 Other long term (current) drug therapy; W01.198A Fall on same level from slipping, tripping and stumbling with subsequent striking against other object, initial encounter; Y93.01 Activity, walking, marching and hiking; Y92.89 Other specified places as the place of occurrence of the external cause
CPT/HCPCS: 36415; 73080-LT; 80053; 83605; 85025; 86140; 90471; 90715; 99283; 99283-25; A9270-GY